=== PATIENT | male | born 1990 | race Caucasian/White ===

== ENCOUNTER → 2020-11-19 09:54 | Outpatient (BNVA) | payer SELFPAY | PROVIDERS: PCP Nurse Practitioner; Visit Provider Nurse Practitioner | DX: F98.8 Other specified behavioral and emotional disorders with onset usually occurring in childhood and adolescence (principal); F41.8 Other specified anxiety disorders | CPT/HCPCS: 80053; 84443 ==

== ENCOUNTER → 2020-11-22 11:10 | Outpatient (BNVA) | payer SELFPAY | PROVIDERS: PCP Nurse Practitioner; Visit Provider Nurse Practitioner | DX: R74.8 Abnormal levels of other serum enzymes (principal); Z11.59 Encounter for screening for other viral diseases; Z79.899 Other long term (current) drug therapy | CPT/HCPCS: 80053 ==

== ENCOUNTER 2022-06-27 17:00 | Emergency (ER) | payer SELFPAY ==
[2022-06-27 17:05] VITALS: BP 125/73; PULSE 93; RESP 13; TEMP 36.7; BMI 27.3
--- NOTE | 2022-06-27 19:50 | XRR_ITS ---
PROCEDURE INFORMATION: Exam: XR Lumbosacral Spine Exam date and time: 06/27/2022 7:54 PM Age: 32 years old Clinical indication: Low back pain TECHNIQUE: Imaging protocol: Radiologic exam of the lumbosacral spine. Views: 2 or 3 views. COMPARISON: No relevant prior studies available. FINDINGS: Bones/joints: Normal. No acute fracture. Normal alignment. There is straightening of the normal lordosis that may indicate spasm. Soft tissues: Unremarkable. XR/XR lumbar spine 2-3V* [id number] IMPRESSION: No acute findings.
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
[2022-06-27] MEDS: predniSONE 20 mg Tablet 40 MG PO (21:05)
[2022-06-27] MEDS: orphenadrine 30 mg/mL Inj 2 mL 60 MG IM (21:07)
[2022-06-27] MEDS: ketorolac 30 mg/mL INJ IM (21:08)
[2022-06-27 21:16] VITALS: BP 127/74; PULSE 65; TEMP 36.9; O2SAT 98
[2022-06-27 21:24] VITALS: BP 127/74; PULSE 65; RESP 18; O2SAT 98
== END 2022-06-27 21:12 | disposition home or self-care (01) ==
PROVIDERS: Emergency Provider Physician Assistant; PCP Nurse Practitioner
DX: M62.830 Muscle spasm of back (principal); Z87.891 Personal history of nicotine dependence
CPT/HCPCS: 72100; 96372; 99284; J1885; J2360; J7512

== ENCOUNTER → 2022-08-04 09:43 | Outpatient (BNVA) | payer BC, SELFPAY | PROVIDERS: PCP Nurse Practitioner; Visit Provider Nurse Practitioner | DX: M79.10 Myalgia, unspecified site (principal); F17.220 Nicotine dependence, chewing tobacco, uncomplicated; F41.8 Other specified anxiety disorders; Z13.6 Encounter for screening for cardiovascular disorders | CPT/HCPCS: 80053; 80061; 85025 ==